=== PATIENT | male | born 1990 | race Caucasian/White ===

== ENCOUNTER 2017-02-19 17:05 | Emergency (ER) | payer BC ==
[2017-02-19] MEDS ORDERED: Lidocaine 2% Viscous Solution 15 ML Cup PO ONE (17:29)
--- NOTE | 2017-02-19 17:33 | EDM.PDOC ---
ED HPI GENERAL MEDICAL PROBLEM - General Chief Complaint: ENT Problem Stated Complaint: PT HAS TOOTHACHE Time Seen by Provider: 02/19/17 17:15 - History of Present Illness INITIAL COMMENTS - FREE TEXT/NARRATIVE: HISTORY AND PHYSICAL: History of present illness: The patient is a 27-year-old male with no stated medical prompts who presents with complaints of pain to his left upper tooth for the last 1 week and he says that the filling fell out one to one and a half weeks ago. He has had no swelling to the area or facial swelling and has no throat pain fever chills cough chest pain shortness of breath or abdominal pain. The patient states he has an appointment with his dentist on Wednesday and the dentist as already given him a prescription for amoxicillin which she started yesterday. The patient presents because of persistent pain and trouble eating because of the pain. The patient states he tried some [id number] tooth glue/cement which did not seem to work. Review of systems: As per history of present illness and below otherwise all systems reviewed and negative. Past medical history: As per history of present illness and as reviewed below otherwise noncontributory. Surgical history: As per history of present illness and as reviewed below otherwise noncontributory. Social history: No reported history of drug or alcohol abuse. Family history: As per history of present illness and as reviewed below otherwise noncontributory. Physical exam: Gen.: Well-developed well-nourished man who is no visible facial swelling and vital signs of been reviewed by me. He speaks clearly and easily HEENT: Atraumatic, normocephalic, pupils reactive, negative for conjunctival pallor or scleral icterus, mucous membranes moist, throat clear, neck supple, nontender, trachea midline. There is no cervical adenopathy and no facial swelling. There is no gross dental disease noted in the mouth with the exception of a dental caries at tooth #12 but no surrounding gum swelling or fluctuance. Lungs: Clear to auscultation, breath sounds equal bilaterally, chest nontender. Heart: S1S2, regular rate and rhythm no overt murmurs0 Abdomen: Soft, nondistended, nontender. NABS Genitourinary: Deferred. Rectal: Deferred. Extremities: Atraumatic, negative for cords or calf pain. Neurovascular unremarkable. Neuro: Awake, alert, oriented. Cranial nerves II through XII unremarkable. Cerebellum unremarkable. Motor and sensory unremarkable throughout. Exam nonfocal. Diagnostics: [] Therapeutics: Dental balls Biceps the patient to continue and finish his amoxicillin and keep his appointment with the dentist. I will give him dental balls to use and recommended [id number] Tylenol/ibuprofen for during the day but will write for a pain pill he can take at nighttime to get rest. Impression: Dental pain Definitive disposition and diagnosis as appropriate pending reevaluation and review of above. tooth Pain Score (Numeric/FACES): 8 - Related Data Allergies Allergy/AdvReac Type Severity Reaction Status Date / Time No Known Allergies Allergy Verified 02/19/17 17:22 Home Meds: Home Meds Acetaminophen [Tylenol Extra Strength] 1,000 mg PO ASDIRECTED 02/19/17 [History] Ibuprofen 400 mg PO ASDIRECTED 02/19/17 [History] ED ROS GENERAL - Review of Systems Review Of Systems: ROS reveals no pertinent complaints other than HPI. ED EXAM, GENERAL - Physical Exam Exam: See Below (See dictation) Course - Vital Signs Last Recorded V/S: Last Vital Signs Temp 36.8 C 02/19/17 17:25 Pulse 51 L 02/19/17 17:25 Resp 16 02/19/17 17:25 BP 127/70 02/19/17 17:25 Pulse Ox 98 02/19/17 17:25 - Orders/Labs/Meds Orders: Active Orders 24 hr Category Date Time Status Benzocaine [Hurricaine One 20%] Med 02/19/17 17:29 Once 2 each MUCMEM ONETIME ONE Lidocaine 2% [Xylocaine 2% Viscous] Med 02/19/17 17:29 Once 15 ml PO ONETIME ONE Medication Orders Benzocaine (Hurricaine One 20%) 2 each MUCMEM ONETIME ONE Stop: 02/19/17 17:30 Lidocaine HCl (Xylocaine 2% Viscous) 15 ml PO ONETIME ONE Stop: 02/19/17 17:30 Meds: Medications Generic Name Dose Route Start Last Admin Trade Name Freq PRN Reason Stop Dose Admin Benzocaine 2 each 02/19/17 17:29 Hurricaine One 20% MUCMEM 02/19/17 17:30 ONETIME ONE Lidocaine HCl 15 ml 02/19/17 17:29 Xylocaine 2% Viscous PO 02/19/17 17:30 ONETIME ONE Departure - Departure Time of Disposition: 17:33 Disposition: Home, Self-Care 01 Condition: Good Clinical Impression: Pain, dental - Discharge Information Forms: ED Department Discharge Additional Instructions: The following information is given to patients seen in the emergency department who are being discharged to home. This information is to outline your options for follow-up care. We provide all patients seen in our emergency department with a follow-up referral. The need for follow-up, as well as the timing and circumstances, are variable depending upon the specifics of your emergency department visit. If you don't have a primary care physician on staff, we will provide you with a referral. We always advise you to contact your personal physician following an emergency department visit to inform them of the circumstance of the visit and for follow-up with them and/or the need for any referrals to a consulting specialist. The emergency department will also refer you to a specialist when appropriate. This referral assures that you have the opportunity for followup care with a specialist. All of these measure are taken in an effort to provide you with optimal care, which includes your followup. Under all circumstances we always encourage you to contact your private physician who remains a resource for coordinating your care. When calling for followup care, please make the office aware that this follow-up is from your recent emergency room visit. If for any reason you are refused follow-up, please contact the [facility] emergency department at and ask to speak to the emergency department charge nurse. [facility] Primary care- Internal [place] [address] Please keep your appointment with the dentist on Wednesday for definitive care and treatment. Use ice to face for any swelling and push hydration and soft foods. Use a dental balls given to you in the ER as shown and needed. Use over- the-counter Tylenol or ibuprofen for daytime and only take the pain pills for sleep time. Return to ER as needed and as discussed - My Orders Last 24 Hours: My Active Orders 02/19/17 17:29 Benzocaine [Hurricaine One 20%] 2 each MUCMEM ONETIME ONE Lidocaine 2% [Xylocaine 2% Viscous] 15 ml PO ONETIME ONE - Assessment/Plan Last 24 Hours: My Active Orders 02/19/17 17:29 Benzocaine [Hurricaine One 20%] 2 each MUCMEM ONETIME ONE Lidocaine 2% [Xylocaine 2% Viscous] 15 ml PO ONETIME ONE
[2017-02-19] MEDS: Benzocaine 20% Topical Spray UD MUCMEM ONE (17:41)
== END 2017-02-19 17:43 | disposition home or self-care (01) ==
LOC: MW.ED 17:05
DX: K08.89 Other specified disorders of teeth and supporting structures (principal)
CPT/HCPCS: 99282; A9270; 99283

== ENCOUNTER 2018-10-25 14:16 | Emergency (ER) | payer BC ==
--- NOTE | 2018-10-25 14:45 | EDM.PDOC ---
ED HPI GENERAL MEDICAL PROBLEM - General Chief Complaint: Genitourinary Problem Stated Complaint: GROIN PAIN Time Seen by Provider: 10/25/18 14:45 Source of Information: Reports: Patient History Limitations: Reports: No Limitations - History of Present Illness INITIAL COMMENTS - FREE TEXT/NARRATIVE: HISTORY AND PHYSICAL: History of present illness: Patient is a 28-year-old male here with complaint of right testicular pain and swelling. He states he had some discomfort yesterday and today noticed more pain and swelling to the testicle. He denies any injury or trauma to the area. He states that he had a vasectomy done in my not approximately 2 months ago. He denies abdominal pain, nausea, vomiting, diarrhea, fevers, chills, dysuria, hematuria. He states that when he does urinate he feels like he still has an urge to go after emptying his bladder. He is sexually active in a monogamous relationship and denies concern for STD. Review of systems: As per history of present illness and below otherwise all systems reviewed and negative. Past medical history: As per history of present illness and as reviewed below otherwise noncontributory. Surgical history: As per history of present illness and as reviewed below otherwise noncontributory. Social history: No reported history of drug or alcohol abuse. Family history: As per history of present illness and as reviewed below otherwise noncontributory. Physical exam: General: Patient sitting comfortably in no acute distress and nontoxic appearing HEENT: Atraumatic, normocephalic, pupils reactive, negative for conjunctival pallor or scleral icterus, mucous membranes moist, throat clear, neck supple, nontender, trachea midline. No meningeal signs. Lungs: Clear to auscultation, breath sounds equal bilaterally, chest nontender. Heart: S1S2, regular, negative for clicks, rubs, or overt murmur. Abdomen: Soft, nondistended, nontender. Negative for masses or hepatosplenomegaly. Negative for costovertebral tenderness. Pelvis: Stable nontender. Genitourinary: Mild swelling of the right scrotum noted. There is no erythema or warmth. Pain to palpation of the posterior aspect of the right testicle and along the epididymis. No mass or cysts noted. Normal cremasteric reflex. Rectal: Deferred. Extremities: Atraumatic, negative for cords or calf pain. Neurovascular unremarkable. Neuro: Awake, alert, oriented. Cranial nerves II through XII unremarkable. Cerebellum unremarkable. Motor and sensory unremarkable throughout. Exam nonfocal. Notes: Diagnostics: UA, urine gonorrhea chlamydia, scrotum ultrasound Therapeutics: Prescriptions: Levaquin Impression: Epididymoorchitis Plan: 1. Take antibiotic as instructed. Tylenol or motrin as needed. 2. Follow up with urology 3. Return to ED as needed as discussed Definitive disposition and diagnosis as appropriate pending reevaluation and review of above. right testicle Pain Score (Numeric/FACES): 5 - Related Data Allergies Allergy/AdvReac Type Severity Reaction Status Date / Time No Known Allergies Allergy Verified 02/19/17 17:22 Home Meds: Home Meds Levofloxacin [Levaquin] 500 mg PO DAILY 10 Days #10 tablet 10/25/18 [Rx] Phentermine HCl 25 mg PO DAILY 10/25/18 [History] Past Medical History - Past Health History Medical/Surgical History: Denies Medical/Surgical History Endocrine/Metabolic History: Reports: Obesity/BMI 30+ - Infectious Disease History Infectious Disease History: Reports: Chicken Pox Social & Family History - Family History Family Medical History: Noncontributory - Tobacco Use Smoking Status *Q: Former Smoker Used Tobacco, but Quit: Yes Month/Year Tobacco Last Used: 07/2018 - Caffeine Use Caffeine Use: Reports: Coffee, Energy Drinks, Soda, Tea - Recreational Drug Use Recreational Drug Use: No ED ROS GENERAL - Review of Systems Review Of Systems: ROS reveals no pertinent complaints other than HPI. ED EXAM, RENAL/ - Physical Exam Exam: See Below (see dictation) Course - Vital Signs Last Recorded V/S: Last Vital Signs Temp 98 F 10/25/18 14:29 Pulse 66 10/25/18 14:29 Resp 18 10/25/18 14:29 BP 138/75 10/25/18 14:29 Pulse Ox 96 10/25/18 14:29 - Orders/Labs/Meds Orders: Active Orders 24 hr Category Date Time Status CHLAMYDIA AND GONORRHEA BY [facility] Stat Lab 10/25/18 15:30 Received Labs: Laboratory Tests 10/25/18 Range/Units 15:30 Urine Color YELLOW Urine Appearance CLEAR Urine pH 5.5 (5.0-8.0) Ur Specific [place] >= 1.030 (1.001-1.035) Urine Protein NEGATIVE (NEGATIVE) mg/dL Urine Glucose (UA) NEGATIVE (NEGATIVE) mg/dL Urine Ketones TRACE H (NEGATIVE) mg/dL Urine Occult Blood NEGATIVE (NEGATIVE) Urine Nitrite NEGATIVE (NEGATIVE) Urine Bilirubin NEGATIVE (NEGATIVE) Urine Urobilinogen 0.2 (<2.0) EU/dL Ur Leukocyte Esterase NEGATIVE (NEGATIVE) Departure - Departure Time of Disposition: 15:57 Disposition: Home, Self-Care 01 Condition: Good Clinical Impression: Epididymo-orchitis - Discharge Information Prescriptions: Levofloxacin [Levaquin] 500 mg PO DAILY 10 Days #10 tablet Referrals: PCP,Unknown [Primary Care Provider] - Forms: ED Department Discharge Additional Instructions: The following information is given to patients seen in the emergency department who are being discharged to home. This information is to outline your options for follow-up care. We provide all patients seen in our emergency department with a follow-up referral. The need for follow-up, as well as the timing and circumstances, are variable depending upon the specifics of your emergency department visit. If you don't have a primary care physician on staff, we will provide you with a referral. We always advise you to contact your personal physician following an emergency department visit to inform them of the circumstance of the visit and for follow-up with them and/or the need for any referrals to a consulting specialist. The emergency department will also refer you to a specialist when appropriate. This referral assures that you have the opportunity for follow-up care with a specialist. All of these measure are taken in an effort to provide you with optimal care, which includes your follow-up. Under all circumstances we always encourage you to contact your private physician who remains a resource for coordinating your care. When calling for follow-up care, please make the office aware that this follow-up is from your recent emergency room visit. If for any reason you are refused follow-up, please contact the [facility] Emergency Department at and asked to speak to the emergency department charge nurse. [facility] Specialty Care - Urology [address] [place] [id number] 1. Take antibiotic as instructed. Tylenol or motrin as needed. 2. Follow up with urology 3. Return to ED as needed as discussed - My Orders Last 24 Hours: My Active Orders 10/25/18 15:30 CHLAMYDIA AND GONORRHEA BY [facility] Stat - Assessment/Plan Last 24 Hours: My Active Orders 10/25/18 15:30 CHLAMYDIA AND GONORRHEA BY [facility] Stat
--- NOTE | 2018-10-25 15:53 | US ---
EXAMINATION: Scrotal duplex ultrasound HISTORY: Pain COMPARISON: None TECHNIQUE: Grayscale, color Doppler, spectral Doppler imaging obtained. FINDINGS: Both the left and right testicles are normal in contour, echogenicity, and size. Normal color and spectral Doppler flow bilaterally. No testicular masses. No scrotal wall thickening. The epididymides these appear mildly heterogeneous however not hypervascular. Epididymal cyst noted on the left. No significant hydroceles or varicocele. IMPRESSION: 1. No definite acute scrotal abnormality identified.
[2018-10-25 16:17] VITALS: BP 116/71
== END 2018-10-25 16:20 | disposition home or self-care (01) ==
LOC: MW.ED 14:16
DX: N45.1 Epididymitis (principal); Z79.899 Other long term (current) drug therapy; Z87.891 Personal history of nicotine dependence
CPT/HCPCS: 76870; 76870-26; 81003; 87491; 87591; 93976; 93976-26; 99283; 99284-25